=== PATIENT | female | born 1985 | race Two or more races ===

== ENCOUNTER 2021-06-12 10:10 | Emergency (ER) | payer SELFPAY ==
[~2021-06-12] VITALS: Ht 165.1 cm; Wt 104.3 kg
--- NOTE | 2021-06-12 11:24 | NUR ---
PT IS IN ROOM #1B. DR MENARD EVALUATED THE PT.
[2021-06-12] MEDS ORDERED: CLIN300C12 PO (11:41)
[2021-06-12] MEDS ORDERED: CARB15DR63 OT (11:42)
--- NOTE | 2021-06-12 12:06 | NUR ---
PT WAS D/C'd TO HOME. D/C INSTRUCTIONS GIVEN TO THE PT BY DR MENARD.
[2021-06-12 12:07] VITALS: BP 133/83
== END 2021-06-12 12:08 | disposition home or self-care (01) ==
LOC: ER 10:10
DX: H66.92 Otitis media, unspecified, left ear (principal); H91.92 Unspecified hearing loss, left ear
CPT/HCPCS: A4663